=== PATIENT | female | born 1970 | race Caucasian/White ===

== ENCOUNTER 2017-05-30 05:39 | Inpatient (IN) | payer BC ==
[2017-05-30] MEDS ORDERED: Ondansetron HCl/PF 4 MG/2 ML Vial IVP PRN ×3 (05:46→08:26)
[2017-05-30] MEDS ORDERED: Bicitra 30 ML UDCUP PO SCH (05:46)
[2017-05-30] MEDS ORDERED: Ropivacaine 0.2% 550 ML 750 ML NERVE BLCK SCH (05:46)
[2017-05-30] MEDS ORDERED: Promethazine HCl 25 MG/ML VIAL IM PRN ×2 (05:46→08:26)
[2017-05-30] MEDS ORDERED: CEFAZOLIN/Water 2 GM/20 ML SYRINGE SLOW IVP SCH (05:46)
[2017-05-30] MEDS ORDERED: Lactated Ringer's 1,000 ML IV SCH ×3 (05:46→11:41)
[2017-05-30 06:25] LABS: Hematocrit 28.8 % (36.0-47.0); Mean Platelet Volume 9.5 fL (7.4-10.4); Red Blood Cell (RBC) Count 3.56 mill/uL (4.20-5.40); White Blood Cell (WBC) Count 8.2 thou/uL (4.8-10.8)
[2017-05-30 06:27] VITALS: BMI 43.0
[2017-05-30] MEDS ORDERED: CEFAZOLIN 3 GM in Sodium Chloride 0.9% 100 ML IVPB SCH (06:45)
[2017-05-30] MEDS ORDERED: CEFAZOLIN/Water 2 GM/20 ML SYRINGE ONE ×2 (07:03→07:16)
[2017-05-30] MEDS ORDERED: Morphine PF 1 MG/ML SYR ONE (07:26)
[2017-05-30] MEDS ORDERED: Fentanyl 100 MCG/2 ML VIAL ONE (07:26)
[2017-05-30] MEDS ORDERED: Oxytocin 10 UNITS/ML VIAL ONE (07:27)
[2017-05-30] MEDS ORDERED: Bupivacaine 0.25% HCL 30 ML VIAL ONE (07:47)
[2017-05-30] MEDS ORDERED: Promethazine HCl 25 MG SUPP PR PRN (08:26)
[2017-05-30] MEDS ORDERED: HYDROmorphone 2 MG/ML VIAL SLOW IVP PRN (08:26)
[2017-05-30] MEDS ORDERED: Eucerin (Mineral Oil/Petrolatum,White) 30 gm Jar TOP PRN (08:26)
[2017-05-30] MEDS ORDERED: Naloxone HCl 0.4 mg/ml Vial IVP PRN ×2 (08:26)
[2017-05-30] MEDS ORDERED: Meperidine HCl/PF 25 MG/ML VIAL SLOW IVP PRN (08:26)
[2017-05-30] MEDS ORDERED: diphenhydrAMINE 50 MG/ML VIAL IVP PRN (08:26)
[2017-05-30] MEDS ORDERED: Naloxone HCl 0.4 mg/ml Vial IV PRN (08:26)
[2017-05-30] MEDS ORDERED: Communication Order-Pharmacy FS SCH (08:30)
[2017-05-30] MEDS ORDERED: Prenatal Vitamin 1 TAB PO SCH (09:00)
[2017-05-30] MEDS ORDERED: Ropivacaine HCl/PF 750 ML in Premix Bag 1 BAG NERVE BLCK SCH (09:00)
[2017-05-30] MEDS ORDERED: DEXLANSOPRAZOLE 60 MG PO SCH (09:00)
--- NOTE | 2017-05-30 09:36 | OP ---
DATE OF PROCEDURE: 05/30/2017 PREOPERATIVE DIAGNOSES: Gestational hypertension, advanced maternal age, obesity, remote from [facility] at 39 weeks gestation. POSTOPERATIVE DIAGNOSES: Gestational hypertension, advanced maternal age, obesity, remote from [facility] at 39 weeks gestation. PROCEDURE: Primary low transverse section without extension. SURGEON: Sterling Lee M.D. BRIDGE IRONWORKER: Gay Courtney M.D. ANESTHESIA: Subarachnoid block. ESTIMATED BLOOD LOSS: 700 mL. COMPLICATIONS: None. MEDICATIONS: 3 grams Ancef preincision. DVT PROPHYLAXIS: SCDs. SPECIMENS REMOVED: Placenta 3-vessel cord, not to pathology. OPERATIVE FINDINGS: 1. Vigorous male , 9 and 9 Apgars, cephalic presentation, clear fluid, weight not done, to new born nursery. 2. Normal appearing uterus, tubes, and ovaries bilaterally. 3. Hemostasis with clear urine. 4. Counts correct at the end of the procedure. DISPOSITION: To the recovery room in good condition. DESCRIPTION OF OPERATIVE PROCEDURE: After obtaining proper informed consent, the patient was taken t o the operating room where subarachnoid block was achieved without difficulty. The patient prepped a nd draped in the usual manner. A Pfannenstiel incision was made, carried down to the fascia and the midline and incised sharply superiorly and laterally with curved Markham scissors. Rectus dissected off sharply superiorly and inferiorly, divided in midline. Peritoneum entered bluntly, taking care to a void trauma to the underlying viscera. Torsten O retractor placed inside. Low transverse hysterotomy was made just above the level of the vesicouterine peritoneal fold with cephalic presentation at [facility] into the uterine cavity with clear fluid noted. Hysterotomy extended superiorly and laterally wit h finger fractionization. 's head elevated through the hysterotomy. The rest of the infant de livered, suctioned, cord clamped and cut and handed off to team in attendance. Usual cord b lood samples obtained. Placenta removed manually. The hysterotomy was noted to be without extension and closed in a single layer of #1 Monocryl suture. Suction irrigation was carried out in the gutte rs bilaterally. Reinspection of the hysterotomy revealed it to be dry. The peritoneum was then clos ed using a 2-0 chromic in a running continuous manner. The fascia was grasped in the midline at the superior aspect of the fascial incision and double lumen ON-Q catheters were inserted in the usual ma nner approximately 2 cm above the level of the incision and extended across the incision into the cor ners on each side. The fascia was then closed using a running continuous 0 PDS suture, taking care t o avoid suturing the ON-Q pumps catheters into the fascial closure. After this was done, suction irr igation was carried out and the subcutaneous tissue, rendered hemostatic with Bovie cautery, reapprox imated a 2 layer closure with 2-0 plain gut. Catheters were applied and the skin was reapproximated using subcuticular 4-0 Monocryl and Dermabond. Clear urine was noted and the patient was taken recov lucía room in good condition with ON-Q double lumen pump 750 mL, 6 mL an hour rate.
[2017-05-30] MEDS ORDERED: diphenhydrAMINE 25 MG CAP PO PRN (11:41)
[2017-05-30] MEDS ORDERED: Simethicone Chewable 80 MG TAB PO PRN (11:41)
[2017-05-30] MEDS ORDERED: LR w/ Pitocin 40 units/1000 ML BAG IV SCH (11:41)
[2017-05-30] MEDS ORDERED: LR / Pitocin 40 units/1000 ml 1,000 ML ONE (12:01)
[2017-05-30] MEDS ORDERED: Acetaminophen 1,000 MG in Premix Bag 1 BAG IVPB PRN (14:00)
[2017-05-30] MEDS ORDERED: Ondansetron HCl/PF 4 MG/2 ML Vial ONE (14:01)
[2017-05-30] MEDS ORDERED: Ketorolac Tromethamine 30 MG/ML VIAL ONE (14:01)
[2017-05-30] MEDS: Ketorolac Tromethamine 30 MG/ML VIAL IVP PRN (15:10)
[2017-05-30] MEDS ORDERED: HYDROcodone/Acetaminophen 5/325 mg Tablet PO PRN (20:30)
[2017-05-30] MEDS ORDERED: Meperidine HCl/PF 25 MG/ML VIAL IM PRN (20:30)
[2017-05-30] MEDS ORDERED: Adacel (T-DAP) 0.5 ML VIAL IM ONE (21:00)
[2017-05-31] MEDS: Ketorolac Tromethamine 30 MG/ML VIAL IVP PRN (05:01)
[2017-05-31 05:35] LABS: Hematocrit 23.4 % (36.0-47.0); Mean Platelet Volume 9.6 fL (7.4-10.4); Red Blood Cell (RBC) Count 2.85 mill/uL (4.20-5.40)
[2017-05-31] MEDS: metFORMIN XR 500 MG TAB PO SCH ×2 (05:43→22:02)
[2017-05-31] MEDS: HYDROcodone/Acetaminophen 5/325 mg Tablet PO PRN ×3 (10:33→23:18)
--- NOTE | 2017-05-31 11:47 | PDOC.PP ---
Post Progress Note Post Day #: 1 PO intake tolerated: yes Flatus: yes Ambulation: yes Vital Signs (12 hours) Temp Pulse Resp BP BP 05/31/17 07:55 98.3 F 76 18 05/31/17 07:50 98.3 F 76 16 154/78 H 05/31/17 06:00 18 05/31/17 04:30 98.5 F 76 18 124/60 05/31/17 02:25 20 05/31/17 01:25 98.2 F 67 20 122/68 Weight Weight 267 lb - Physical Examination General: NAD Cardiovascular: no m/r/g, RRR Respiratory: clear to auscultation bilaterally, non-labored breathing Skin: CS incision dry & intact, no rash Result Diagrams: 05/31/17 05:01 Additional Labs: Post Labs Blood Type B POSITIVE 05/30/17 06:14 Hep Bs Antigen Non-Reactive S/CO (NonReactive) 05/30/17 06:14 - Assessment/Plan doing well post op day 1. chronic anemia with acute blood loss. asymptomatic. routine care. iron supplement.
[2017-05-31] MEDS: Docusate (Surfak) 240 MG CAP PO SCH ×2 (13:41→21:53)
[2017-05-31] MEDS: Ibuprofen 800 MG TAB PO SCH ×2 (13:41→21:53)
[2017-06-01] MEDS: HYDROcodone/Acetaminophen 5/325 mg Tablet PO PRN ×3 (06:38→21:05)
[2017-06-01] MEDS: Ibuprofen 800 MG TAB PO SCH ×3 (06:39→21:04)
[2017-06-01] MEDS: Docusate (Surfak) 240 MG CAP PO SCH ×2 (11:45→21:04)
--- NOTE | 2017-06-01 14:02 | PDOC.PP ---
Post Progress Note Post Day #: 2 PO intake tolerated: yes Flatus: yes Ambulation: yes Vital Signs (12 hours) Temp Pulse Resp BP 06/01/17 12:16 98.2 F 86 18 137/78 06/01/17 11:18 98.1 F 94 18 06/01/17 07:55 98.1 F 94 18 Weight Admit Weight 267 lb Weight 267 lb - Physical Examination General: NAD Cardiovascular: no m/r/g, RRR Respiratory: clear to auscultation bilaterally, non-labored breathing Abdominal: + bowel sounds, lochia, no distention, appropriately TTP Result Diagrams: 05/31/17 05:01 Additional Labs: Post Labs Blood Type B POSITIVE 05/30/17 06:14 Hep Bs Antigen Non-Reactive S/CO (NonReactive) 05/30/17 06:14 Rubella IgG Antibody 1.14 index (Immune >0.99) 05/31/17 05:01 - Assessment/Plan post op day 2-doing well. on q pump removed due to leaking. has adequate pain control with oral meds. routine care.
[2017-06-01] MEDS: metFORMIN XR 500 MG TAB PO SCH (21:05)
[2017-06-02] MEDS: HYDROcodone/Acetaminophen 5/325 mg Tablet PO PRN (03:46)
[2017-06-02 04:38] VITALS: TEMP 98.1
[2017-06-02] MEDS: Ibuprofen 800 MG TAB PO SCH ×2 (05:48→13:54)
[2017-06-02] MEDS ORDERED: Triamcinolone 0.1% Cream 15 GM TUBE TOP PRN (08:24)
--- NOTE | 2017-06-02 08:27 | PDOC.PP ---
Post Progress Note Post Day #: 3 PO intake tolerated: yes Flatus: yes Ambulation: yes Vital Signs (12 hours) Temp Pulse Resp BP 06/02/17 08:00 98.1 F 73 20 166/91 H 06/02/17 03:45 98.1 F Weight Admit Weight 267 lb Weight 267 lb - Physical Examination General: NAD Cardiovascular: no m/r/g, RRR Respiratory: clear to auscultation bilaterally, non-labored breathing Abdominal: + bowel sounds, lochia, no distention, appropriately TTP Result Diagrams: 05/31/17 05:01 Additional Labs: Post Labs Blood Type B POSITIVE 05/30/17 06:14 Hep Bs Antigen Non-Reactive S/CO (NonReactive) 05/30/17 06:14 Rubella IgG Antibody 1.14 index (Immune >0.99) 05/31/17 05:01 - Assessment/Plan doing well d/c home f/u 6 weeks
[2017-06-02] MEDS: Docusate (Surfak) 240 MG CAP PO SCH (09:24)
[2017-06-02 12:11] VITALS: BP 137/72
[2017-06-04] MEDS ORDERED: Ibuprofen 800 MG TAB PO SCH (14:00)
== END 2017-06-02 16:40 | disposition home or self-care (01) | DRG 765 ==
LOC: L&D 05:39 → 3SW 11:39
PROVIDERS: ADMIT Obstetrics & Gynecology; ATTEND Obstetrics & Gynecology
PROC: 10D00Z1 Extraction of Products of Conception, Low, Open Approach (ICD-10-PCS; principal; 2017-05-30)
DX: O13.4 Gestational [pregnancy-induced] hypertension without significant proteinuria, complicating childbirth (principal); Z68.41 Body mass index [BMI] 40.0-44.9, adult; D62 Acute posthemorrhagic anemia; Z3A.39 39 weeks gestation of pregnancy; Z37.0 Single live birth; O99.214 Obesity complicating childbirth; E66.9 Obesity, unspecified; D64.9 Anemia, unspecified; O99.03 Anemia complicating the puerperium
CPT/HCPCS: 36415; 85027; 86762; 86780; 86850; 86900; 86901; 87340; 87389; A4306; J0131; J0690; J1885; J2274; J2405; J2590; J2795; J3010; J7050; S0020

== ENCOUNTER 2018-11-11 08:14 | Day surgery (SDC) | payer BC ==
[2018-11-11 09:00] VITALS: BMI 41.9
[2018-11-11] MEDS ORDERED: Lactated Ringer's 1,000 ML IV SCH (09:45)
--- NOTE | 2018-11-11 09:46 | PDOC.LDHP ---
Labor and Delivery H&P Chief complaint: decreased movement HPI: 48 y/o at 38w3d, patient of Dr. Lee, presents with decreased FM today. Patient had N/V yesterday and started having diarrhea today and feels dehydrated. Denies VB, LOF, ctx, or other concerns. Has had some mild upper abdominal cramping today. Tolerated a popsicle today. ROS neg for HEENT, cv, pulm, gi, gu, neuro, psych, skin, musculoskeletal or constitutional symptoms other than mentioned above. OB History Details: 1 prior term LTCS for [facility]TP Current complications: other (AMA) Past Medical History: Obesity Depression Previous surgical history: low tranverse CS, other (gastric sleeve, LEEP) Allergies/Adverse Reactions: Allergies Allergy/AdvReac Type Severity Reaction Status Date / Time rabeprazole [From Aciphex] Allergy Mild Rash Verified 05/30/17 06:31 Social history: none - Physical Exam Vital signs reviewed and normal: yes General: NAD, resting Lungs: nonlabored breathing Abdomen: gravid Extremeties: no edema FHT: category 1 (150s, mod variability, + accels, no decels) [place] contractions every: none - Assessment 48 y/o at 38w3d with dehydration from gastroenteritis. status reassuring with reactive NST. - Plan -: D/c home with precautions. Advised to keep all appointments. Scheduled for repeat LTCS on 11/15.
== END 2018-11-11 11:45 | disposition home or self-care (01) ==
LOC: L&D/OP 08:14
PROVIDERS: ATTEND Obstetrics & Gynecology
DX: O99.613 Diseases of the digestive system complicating pregnancy, third trimester (principal); K52.9 Noninfective gastroenteritis and colitis, unspecified; O99.283 Endocrine, nutritional and metabolic diseases complicating pregnancy, third trimester; E86.0 Dehydration; O09.523 Supervision of elderly multigravida, third trimester; O36.8130 Decreased fetal movements, third trimester, not applicable or unspecified; O99.353 Diseases of the nervous system complicating pregnancy, third trimester; F32.9 Major depressive disorder, single episode, unspecified; Z88.8 Allergy status to other drugs, medicaments and biological substances; Z3A.38 38 weeks gestation of pregnancy
CPT/HCPCS: 96360; 96361; 99282

== ENCOUNTER 2018-11-15 09:58 | Inpatient (IN) | payer BC ==
[2018-11-15] MEDS ORDERED: Lactated Ringer's 1,000 ML IV SCH ×2 (10:36→15:04)
[2018-11-15] MEDS ORDERED: Ondansetron PF 4 MG/2 ML Vial IVP PRN ×5 (10:36→20:56)
[2018-11-15] MEDS ORDERED: Promethazine HCl 25 MG/ML VIAL IM PRN ×5 (10:36→20:56)
[2018-11-15] MEDS ORDERED: Bicitra 30 ML UDCUP PO SCH (10:36)
[2018-11-15] MEDS: Lactated Ringer's 1,000 ML IV SCH ×2 (10:40→11:51)
[2018-11-15 10:56] VITALS: BMI 41.9
[2018-11-15 10:56] LABS: Hemoglobin 10.4 g/dL (12.0-16.0); Mean Corpuscular HGB CONC 34.3 g/dL (32.0-36.0); Mean Corpuscular Hemoglobin 26.9 pg (27.0-31.0); Mean Corpuscular Volume 78.4 fL (78.0-98.0); Mean Platelet Volume 9.1 fL (7.4-10.4); Platelet Count 242 thou/uL (130-400); RBC Distribution Width 13.1 % (11.5-14.5); Red Blood Cell (RBC) Count 3.85 mill/uL (4.20-5.40); White Blood Cell (WBC) Count 9.2 thou/uL (4.8-10.8)
[2018-11-15] MEDS ORDERED: CEFAZOLIN 3 GM in Sodium Chloride 0.9% 100 ML IVPB SCH (11:30)
[2018-11-15 11:35] LABS: HBSAg Index 0.39 S/CO (0-0.99); Hep B Surf Ag Non-Reactive S/CO (NonReactive)
[2018-11-15 11:36] LABS: Syphilis Antibody Nonreactive (Nonreactive); Syphilis Antibody Index 0.07 S/CO (<1.00 Non-Reactive)
[2018-11-15] MEDS ORDERED: MORPHINE 5 MG/10 ML PF VIAL ONE (11:41)
[2018-11-15] MEDS ORDERED: ePHEDrine/0.9% NaCl/PF SYRINGE 50 mg/10 ml ONE (11:42)
[2018-11-15] MEDS ORDERED: Oxytocin 10 UNITS/ML VIAL ONE ×2 (11:42→12:27)
[2018-11-15] MEDS ORDERED: CEFAZOLIN 1 GM VIAL ONE (11:52)
[2018-11-15] MEDS ORDERED: Ondansetron PF 4 MG/2 ML Vial ONE (12:11)
[2018-11-15] MEDS ORDERED: Ketorolac Tromethamine 30 MG/ML VIAL IVP PRN ×2 (12:29→12:39)
[2018-11-15] MEDS ORDERED: diphenhydrAMINE 50 MG/ML VIAL IVP PRN ×2 (12:29→12:39)
[2018-11-15] MEDS ORDERED: HYDROmorphone 2 MG/ML VIAL SLOW IVP PRN ×2 (12:29→12:39)
[2018-11-15] MEDS ORDERED: Naloxone HCl 0.4 mg/ml Vial IVP PRN ×4 (12:29→12:39)
[2018-11-15] MEDS ORDERED: Naloxone HCl 0.4 mg/ml Vial IV PRN ×5 (12:29→20:56)
[2018-11-15] MEDS ORDERED: Meperidine HCl/PF 25 MG/ML VIAL SLOW IVP PRN ×2 (12:29→12:39)
[2018-11-15] MEDS ORDERED: Eucerin (Mineral Oil/Petrolatum,White) 30 gm Jar TOP PRN ×2 (12:29→12:39)
[2018-11-15] MEDS ORDERED: Promethazine HCl 25 MG SUPP PR PRN ×3 (12:29→20:56)
[2018-11-15] MEDS ORDERED: L&D-Morphine 4 MG/ML VIAL SLOW IVP PRN ×2 (12:29→12:39)
[2018-11-15] MEDS ORDERED: Ondansetron HCl/PF 4 MG/2 ML Vial IVP PRN ×2 (12:29→12:39)
[2018-11-15] MEDS ORDERED: Communication Order-Pharmacy FS SCH ×2 (12:30→12:45)
[2018-11-15] MEDS ORDERED: Ketorolac Tromethamine 30 MG/ML VIAL IVP SCH ×2 (12:30→12:45)
[2018-11-15] MEDS ORDERED: NS / Oxytocin 40 units/1000ml 1,000 ML IV SCH (15:04)
[2018-11-15] MEDS ORDERED: diphenhydrAMINE 25 MG CAP PO PRN (15:04)
[2018-11-15] MEDS ORDERED: HYDROcodone/Acetaminophen 5/325 mg Tablet PO PRN (15:04)
[2018-11-15] MEDS ORDERED: Acetaminophen 325 MG TAB PO PRN (15:04)
[2018-11-15] MEDS ORDERED: Lanolin Ointment 7 GM TUBE TOP PRN (15:04)
[2018-11-15] MEDS ORDERED: Adacel (T-DAP) 0.5 ML SYRINGE IM ONE (15:04)
[2018-11-15] MEDS ORDERED: Meperidine HCl/PF 25 MG/ML VIAL IM PRN (15:04)
[2018-11-15] MEDS ORDERED: ePHEDrine 50 MG/ML VIAL ONE (16:35)
--- NOTE | 2018-11-15 17:21 | OP ---
DATE OF PROCEDURE: 11/15/2018 PREOPERATIVE DIAGNOSES: Prior section x1 at 39 weeks' gestation and morbid obesity. POSTOPERATIVE DIAGNOSES: Prior section x1 at 39 weeks' gestation and morbid obesity. PROCEDURE PERFORMED: Repeat low transverse section without extension. PLATE HANGER: Funmilayo Blanco MD ANESTHESIA: Subarachnoid block. ESTIMATED BLOOD LOSS: Approximately 1000 mL. QUANTITATIVE BLOOD LOSS: Pending. MEDICATIONS: 3 g Ancef pre-incision and DVT prophylaxis with SCDs. OPERATIVE FINDINGS: 1. Vigorous male , cephalic presentation, Apgars and weight pending, to nursery. 2. Normal-appearing uterus, tubes, and ovaries bilaterally. 3. Hemostasis, clear urine. COUNTS: Correct at the end of the procedure. DISPOSITION: Recovery room in good condition. DESCRIPTION OF PROCEDURE: After obtaining appropriate informed consent, the patient was taken to the operating room, where subarachnoid block was achieved without difficulty. The patient was prepped and draped in the usual manner. Previous Pfannenstiel incision was identified and sharply incised, carried down to the fascia, where it was excised superiorly and laterally with curved Markham scissors. Rectus was dissected off sharply superiorly and inferiorly, divided in midline. Peritoneum was entered bluntly, taking care to avoid trauma to the underlying viscera. Torsten O was placed inside. Low-transverse hysterotomy site from previous was easily identified and noted to be above the level of the vesicouterine peritoneum. It was incised sharply. The 's head was elevated through the hysterotomy. Due to scarring with the fascia and deflection of the head, decision was made to use the Mityvac vacuum extractor, which was applied in the green zone for less than 5 seconds to facilitate delivery of the head through the abdominal incision. Rest of the infant was delivered with ease through the hysterotomy onto the abdomen, suctioned, cord clamped and cut, and handed off to the team in attendance. Usual cord blood sample was obtained. Placenta was removed manually. Hysterotomy was noted to be without extension and uterus was left in situ. Hysterotomy was closed using a running locking #1 Monocryl suture x1. Good hemostasis was noted and the gutters were irrigated out. Reinspection of the hysterotomy revealed it to be dry. The Torsten O retractor was removed, and the rectus was inspected and noted to be dry. The fascia was reapproximated using a running continuous 0 PDS suture x2. Subcutaneous tissue was irrigated, rendered hemostatic with Bovie cautery, and reapproximated using a 2-0 plain gut. Skin was reapproximated using 3-0 Monocryl and Dermabond, and the patient was taken to recovery room in good condition. Job ID: [id number]
[2018-11-15] MEDS ORDERED: NO PO,IM,IV OR SC NARCOTICS FOR 12HR EXCEPT BY ANESTHESIA PO SCH (20:56)
[2018-11-15] MEDS ORDERED: Hydrocerin (Eucerin) Cream 120 gm Jar TOP PRN (20:56)
[2018-11-15] MEDS ORDERED: Zolpidem Tartrate 5 MG TAB PO PRN (21:00)
[2018-11-15] MEDS: Ketorolac Tromethamine 30 MG/ML VIAL IVP PRN (21:11)
[2018-11-15] MEDS: Docusate Calcium (SURFAK) 240 MG CAP PO SCH (22:19)
[2018-11-15] MEDS: Ibuprofen 800 MG TAB PO SCH (22:19)
[2018-11-15] MEDS: diphenhydrAMINE 50 MG/ML VIAL IVP PRN (23:52)
[2018-11-16] MEDS: Ketorolac Tromethamine 30 MG/ML VIAL IVP PRN (04:57)
[2018-11-16] MEDS: diphenhydrAMINE 50 MG/ML VIAL IVP PRN (05:04)
[2018-11-16 06:48] LABS: Hemoglobin 8.6 g/dL (12.0-16.0); Mean Corpuscular HGB CONC 33.3 g/dL (32.0-36.0); Mean Corpuscular Volume 80.9 fL (78.0-98.0); Mean Platelet Volume 8.6 fL (7.4-10.4); Platelet Count 194 thou/uL (130-400); RBC Distribution Width 12.9 % (11.5-14.5); Red Blood Cell (RBC) Count 3.18 mill/uL (4.20-5.40); White Blood Cell (WBC) Count 9.9 thou/uL (4.8-10.8)
[2018-11-16] MEDS: Prenatal Vitamin 1 TAB PO SCH (09:12)
[2018-11-16] MEDS: HYDROcodone/Acetaminophen 5/325 mg Tablet PO PRN (09:12)
[2018-11-16] MEDS: Docusate Calcium (SURFAK) 240 MG CAP PO SCH ×2 (09:12→22:16)
[2018-11-16] MEDS: Simethicone Chewable 80 MG TAB PO PRN ×2 (09:12→22:29)
[2018-11-16] MEDS: Ibuprofen 800 MG TAB PO SCH ×3 (14:05→22:15)
[2018-11-17] MEDS: Ibuprofen 800 MG TAB PO SCH (05:11)
--- NOTE | 2018-11-17 08:14 | PDOC.PP ---
Post Progress Note Post Day #: 2 Subjective: Doing well this morning. No complaints. PO intake tolerated: yes Flatus: yes Ambulation: yes Vital Signs (12 hours) Temp Pulse Resp BP 11/17/18 05:00 97.9 F 80 18 100/51 L Weight Weight 260 lb - Physical Examination General: NAD Respiratory: non-labored breathing Abdominal: lochia (normal), no distention, appropriately TTP Fundus firm & at: below umbilicus Skin: CS incision dry & intact, no rash Neurological: no gross focal deficits Psychiatric: A&Ox3, normal affect Result Diagrams: 11/16/18 06:14 Additional Labs: Post Labs Blood Type B POSITIVE 11/15/18 10:40 Hep Bs Antigen Non-Reactive S/CO (NonReactive) 11/15/18 10:40 (1) Delivered by section Code(s): O82 - ENCOUNTER FOR DELIVERY WITHOUT INDICATION Status: Acute - Assessment/Plan Patient would like to go home today if infant cleared for d/c. Plan d/c this afternoon or tomorrow.
[2018-11-17 09:08] VITALS: BP 117/56; TEMP 98.1
[2018-11-17] MEDS: HYDROcodone/Acetaminophen 5/325 mg Tablet PO PRN (09:23)
[2018-11-17] MEDS: Docusate Calcium (SURFAK) 240 MG CAP PO SCH (09:23)
[2018-11-17] MEDS: Prenatal Vitamin 1 TAB PO SCH (09:23)
--- NOTE | 2018-11-17 12:05 | PDOC.EVN ---
Event Note - Event Note Event Note: Ready for home. VSS AF. DC home with precautions. Has wound check set with Dr. Lee in 2 weeks.
== END 2018-11-17 13:15 | disposition home or self-care (01) | DRG 788 ==
LOC: L&D 09:58 → 3SW 15:01
PROVIDERS: ADMIT Obstetrics & Gynecology; ATTEND Obstetrics & Gynecology
PROC: 10D00Z1 Extraction of Products of Conception, Low, Open Approach (ICD-10-PCS; principal; 2018-11-15)
DX: O34.211 Maternal care for low transverse scar from previous cesarean delivery (principal); Z3A.39 39 weeks gestation of pregnancy; Z37.0 Single live birth; O99.214 Obesity complicating childbirth; E66.9 Obesity, unspecified
CPT/HCPCS: 36415; 51702; 85027; 86780; 86850; 86900; 86901; 87340; J0690; J1200; J1885; J2270; J2405; J2590; J3490

== ENCOUNTER 2020-07-27 15:39 | Outpatient (CLI) | payer BC ==
--- NOTE | 2020-07-27 16:44 | MMO ---
Bilateral MAMMO Bilat Screen [facility]. CLINICAL HISTORY: Patient is 50 years old and is seen for screening. The patient has no family history of breast cancer. The patient has no personal history of cancer. The patient has a history of left Ultrasound Guided Core Biopsy in 2014 - fibroadenoma. VIEWS: The views performed were: bilateral craniocaudal with tomosynthesis and bilateral mediolateral oblique with tomosynthesis. FILMS COMPARED: The present examination has been compared to a prior imaging study performed at [facility] on 11/12/2015. This study has been interpreted with the assistance of computer-aided detection. MAMMOGRAM FINDINGS: There are scattered fibroglandular densities. Finding 1: There are stable benign appearing calcifications seen in both breasts. Finding 2: There is a stable mass with circumscribed margins and associated biopsy clip seen in the left breast. There are no suspicious masses, suspicious calcifications, or new areas of architectural distortion. IMPRESSION: THERE IS NO MAMMOGRAPHIC EVIDENCE OF MALIGNANCY. A ROUTINE FOLLOW-UP MAMMOGRAM IN 1 YEAR IS RECOMMENDED. THE RESULTS OF THIS EXAM WERE SENT TO THE PATIENT. ACR BI-RADS Category 2 - Benign finding MAMMOGRAPHY NOTE: 1. A negative mammogram report should not delay a biopsy if a dominant of clinically suspicious mass is present. 2. Approximately 10% to 15% of breast cancers are not detected by mammography. 3. Adenosis and dense breasts may obscure an underlying neoplasm. Reported by: MARCEL FLOWERS MD Electonically Signed: [id number]
== END 2020-07-27 15:40 | disposition home or self-care (01) ==
LOC: BICMAMMO 15:39
PROVIDERS: ATTEND Family Medicine
DX: Z12.31 Encounter for screening mammogram for malignant neoplasm of breast (principal)
CPT/HCPCS: 77063; 77067

== ENCOUNTER 2020-09-02 19:00 | Outpatient (CLI) | payer BC | END 2020-09-02 19:01 | disposition home or self-care (01) | LOC: SLEEPLAB 19:00 | PROVIDERS: ATTEND Internal Medicine Pulmonary Disease | DX: G47.33 Obstructive sleep apnea (adult) (pediatric) (principal); K21.9 Gastro-esophageal reflux disease without esophagitis | CPT/HCPCS: 95811 ==

== ENCOUNTER 2023-08-30 14:03 | Outpatient (CLI) | payer BC | END 2023-08-30 14:04 | disposition home or self-care (01) | LOC: BICMAMMO 14:03 | PROVIDERS: ATTEND Family Medicine | DX: Z12.31 Encounter for screening mammogram for malignant neoplasm of breast (principal) | CPT/HCPCS: 77063; 77067 ==

== ENCOUNTER 2024-09-05 15:13 | Outpatient (CLI) | payer BC | END 2024-09-05 15:14 | disposition home or self-care (01) | LOC: BICMAMMO 15:13 | PROVIDERS: ATTEND Family Medicine | DX: Z12.31 Encounter for screening mammogram for malignant neoplasm of breast (principal); Z91.89 Other specified personal risk factors, not elsewhere classified | CPT/HCPCS: 77063; 77067 ==